=== PATIENT | male | born 1995 | race Caucasian/White ===

== ENCOUNTER 2018-01-13 03:01 | Emergency (ER) | payer BC ==
[~2018-01-13] VITALS: Ht 193 cm; Wt 77.3 kg
[~2018-01-13 03:01] MED LIST: NO HOME MEDICATIONS
[2018-01-13 03:04] VITALS: TEMP 97.2
[2018-01-13] MEDS ORDERED: AMOXICILLIN 8751 TAB PO (05:07)
[2018-01-13] MEDS ORDERED: NORCO 325 MG-51 TAB PO (05:08)
[2018-01-13 05:33] VITALS: BP 114/80; PULSE 75
== END 2018-01-13 05:52 | disposition home or self-care (01) ==
LOC: COL.ER 03:01
DX: S02.40CA Maxillary fracture, right side, initial encounter for closed fracture (principal); R91.1 Solitary pulmonary nodule; Y04.8XXA Assault by other bodily force, initial encounter; Y92.410 Unspecified street and highway as the place of occurrence of the external cause

== ENCOUNTER 2018-03-19 10:26 | Emergency (ER) | payer BC ==
[~2018-03-19] VITALS: Ht 193 cm; Wt 77.3 kg
[~2018-03-19 10:26] MED LIST changes: +AMOXICILLIN 8751 TAB PO; +NORCO 325 MG-51 TAB PO
[2018-03-19 10:29] VITALS: BP 134/72; TEMP 98.1
[2018-03-19 12:05] VITALS: PULSE 75
== END 2018-03-19 12:07 | disposition home or self-care (01) ==
LOC: COL.ER 10:26
DX: S69.92XA Unspecified injury of left wrist, hand and finger(s), initial encounter (principal); Z90.89 Acquired absence of other organs; W10.9XXA Fall (on) (from) unspecified stairs and steps, initial encounter; Y92.009 Unspecified place in unspecified non-institutional (private) residence as the place of occurrence of the external cause